=== PATIENT | female | born 1940 | race Caucasian/White ===

== ENCOUNTER 2021-11-12 17:46 | Emergency (ER) | payer BC, MEDICARE ==
[~2021-11-12] VITALS: Ht 172.7 cm; Wt 52.2 kg
--- NOTE | 2021-11-12 18:04 | NUR ---
PT DOES NOT REMEMBER NAMES AND DOSAGES OF HER HOME MEDICATIONS.
--- NOTE | 2021-11-12 18:36 | NUR ---
xray of right big done
--- NOTE | 2021-11-12 18:54 | NUR ---
at bedside to examine pt.
--- NOTE | 2021-11-12 19:19 | NUR ---
report givento [employer] worker 2nd shift rosa Gibbons
[2021-11-12] MEDS ORDERED: SULF1TAB48 PO (19:33)
[2021-11-12 19:38] VITALS: BP 159/78
--- NOTE | 2021-11-12 19:38 | NUR ---
Patient discharged to home in stable condition. Written and verbal after care instructions given. Patient verbalizes understanding of instructions. Stressed follow up or return to ER for worsening s/s. Pt able to ambulate without assist. No distress noted.
== END 2021-11-12 19:39 | disposition home or self-care (01) ==
LOC: ER 17:49
DX: L03.031 Cellulitis of right toe (principal); Z96.651 Presence of right artificial knee joint; Z88.1 Allergy status to other antibiotic agents; M81.0 Age-related osteoporosis without current pathological fracture; R03.0 Elevated blood-pressure reading, without diagnosis of hypertension
CPT/HCPCS: 73660; A4663

== ENCOUNTER 2023-06-15 17:32 | Emergency (ER) | payer BC ==
[~2023-06-15] VITALS: Ht 170.2 cm; Wt 52.2 kg
[~2023-06-15 17:32] MED LIST: SULF1TAB48 PO
[2023-06-15] MEDS ORDERED: predniSONE 20 MG TABLET PO ONE (18:30)
[2023-06-15] MEDS ORDERED: predniSONE 10 MG TABLET ONE (18:34)
[2023-06-15] MEDS ORDERED: predniSONE 50 MG TABLET ONE (18:34)
[2023-06-15 18:56] LABS: BASOPHILS # (AUTO) 0.1 K/UL (0.0-0.2); BASOPHILS % (AUTO) 0.9 % (0.0-2.0); EOSINOPHILS # (AUTO) 0.1 K/uL (0.0-0.7); EOSINOPHILS % (AUTO) 1.6 % (0.0-7.0); HEMATOCRIT 38.8 % (31.2-41.9); HEMOGLOBIN 13.2 g/dL (10.9-14.3); LYMPHOCYTES # (AUTO) 0.3 K/uL (0.8-4.8); LYMPHOCYTES % (AUTO) 3.9 % (20.5-51.5); MEAN CORPUSCULAR HEMOGLOBIN 30.7 uug (24.7-32.8); MEAN CORPUSCULAR HGB CONC 34 g/dL (32.3-35.6); MEAN CORPUSCULAR VOLUME 90.5 fL (75.5-95.3); MONOCYTES # (AUTO) 0.5 K/uL (0.1-1.30); MONOCYTES % (AUTO) 7.9 % (0.0-11.0); NEUTROPHILS # (AUTO) 5.9 K/uL (1.8-8.9); NEUTROPHILS % (AUTO) 85.7 % (38.5-71.5); PLATELET COUNT (AUTO) 228 K/uL (179-408); RED BLOOD CELL COUNT(AUTO) 4.29 MIL/uL (3.63-4.92); RED CELL DISTRIBUTION WIDTH 13.9 % (12.3-17.7); WHITE BLOOD COUNT (AUTO) 6.9 K/uL (3.8-11.8)
[2023-06-15 19:03] LABS: DIFFERENTIAL COMMENT 1
[2023-06-15 19:08] LABS: CALCIUM 9.3 mg/dL (8.5-10.1); CARBON DIOXIDE 31 mmol/L (21-32); CHLORIDE 101 mmol/L (98-107); CREATININE 0.7 mg/dL (0.6-1.3); GLUCOSE 117 mg/dL (74-106); POTASSIUM 4.2 mmol/L (3.5-5.1); SODIUM SERUM 137 mmol/L (136-145); UREA NITROGEN, BLOOD 23 mg/dL (7-18)
[2023-06-15] MEDS ORDERED: TRAM50TA2 PO (19:23)
[2023-06-15] MEDS ORDERED: PRED50TA PO (19:36)
[2023-06-15 19:43] VITALS: BP 140/87; O2SAT 96
== END 2023-06-15 19:43 | disposition home or self-care (01) ==
LOC: ER 17:34
DX: R51.9 Headache, unspecified (principal); Z88.1 Allergy status to other antibiotic agents; Z79.899 Other long term (current) drug therapy
CPT/HCPCS: 99284; 70450; 80048; 85025; 85651; 84484; 36415; J7512 ×2; A4663